=== PATIENT | female | born 1945 | race Caucasian/White ===

== ENCOUNTER 2016-02-22 17:08 | Emergency (ER) | payer MEDICARE, MEDICAID ==
[~2016-02-22] VITALS: Ht 154.9 cm; Wt 59.1 kg
[~2016-02-22 17:08] MED LIST: AC325T PO; BISA10SU6 RC; CALC625T PO; CETI-262 PO; DEXT1DRO8 OU; ESTR0.3T PO; ESTR0.5T PO; FAMO-119 PO; HCT25T PO; LORA1TAB PO; LOSA100T3 PO; LOSA1TAB69 PO; MIRALAX 17 GM P17 GM PO; MULT-55 PO; NF-LUBIP24 PO; NYST30CR TOP; OMEP20CA12 PO; OMEP20TA PO; SENN1TAB76 PO; TRAZ100T92 PO; ZPR20C PO
[2016-02-22 18:32] LABS: BILIRUBIN,URINE Negative (Negative); GLUCOSE, URINE (UA) Negative (Negative); LEUKOCYTE ESTERASE ,URINE Negative (Negative); PH,URINE 6.5 (5.0 - 8.0); UROBILINOGEN,URINE 0.2 mg/dL (0.2-1.0)
[2016-02-22 18:33] LABS: COLOR,URINE Dark Yellow
[2016-02-22 18:34] LABS: CLARITY,URINE Slightly Cloudy
--- NOTE | 2016-02-22 18:34 | NUR ---
attempted IV 5 times by 2 nurses. ok with just blood draw for now.
[2016-02-22 19:21] LABS: BASOPHILS % (AUTO) 1 % (0-2); EOSINOPHILS # (AUTO) 0.2 10^3uL; EOSINOPHILS % (AUTO) 2 % (0-4); LYMPHOCYTES # (AUTO) 1.8 X10^3; MEAN CORPUSCULAR HGB CONC 32.9 g/dL (31.0-37.0); MEAN CORPUSCULAR VOLUME 94 FL (80-100); MEAN PLATELET VOLUME 10.5 FL (6.0-9.5); MONOCYTES # (AUTO) 0.7 X10^3; MONOCYTES % (AUTO) 10 % (3-11); NEUTROPHILS # (AUTO) 4.4 X10^3; NEUTROPHILS % (AUTO) 61 % (51-67); PLATELET COUNT 330 10^3uL (150-450); WHITE BLOOD COUNT 7.19 10^3uL (4.0-11.0)
[2016-02-22 19:33] LABS: ALBUMIN 4.1 g/dL (3.4-5.0); ANION GAP 14.4 MEQ/L (3-15); CALCULATED IONIZED CALCIUM 4.4 mg/dL (3.8-4.6); TOTAL PROTEIN 7.2 g/dL (6.4-8.5)
[2016-02-22 20:48] VITALS: BP 102/73
--- NOTE | 2016-02-22 22:21 | Diagnostic Imaging Report ---
INDICATION: A 70-year-old female with generalized abdominal pain and chest pain COMPARISONS: 04/09/11 FINDINGS: Single view of the chest shows the cardiac contour to be upper limits of normal. There is central venous congestion. There is diffuse bilateral atelectatic type infiltrates. There is some peribronchial cuffing centrally. There are no large consolidations, effusion or pneumothorax. There is mild to moderate distention of small bowel with gas-filled loops. The large bowel contains gas and fecal material with gas seen all the way to the rectum. Several subcutaneous calcifications are seen in the right lower quadrant. There is a previous cholecystectomy. There are no other abnormal radiopaque calcifications. There is no organomegaly. Visualized bony abdomen/pelvis appears age-appropriate. IMPRESSION: 1. Some central reactive airway changes with some perihilar and bibasilar atelectatic type infiltrates. An element of mild central venous congestion is not excluded. 2. Probable ileus with slightly prominent gas-filled loops of small and large bowel with gas seen over the rectum. Short-term followup with clinical correlation is recommended. Additional nonemergent findings as described above. Dictated by: Dictated on workstation # [id number]
== END 2016-02-22 21:17 | disposition home or self-care (01) ==
LOC: ED 17:10
DX: K59.00 Constipation, unspecified (principal)
CPT/HCPCS: 36415; 74022; 80053; 81003; 85025; 86140; 99283